=== PATIENT | female | born 2000 | race Caucasian/White ===

== ENCOUNTER 2021-07-09 19:42 | Emergency (ER) | payer OTHER ==
[~2021-07-09 19:42] MED LIST: NAPROXEN500 MG PO
[2021-07-09 21:44] LABS: BASOPHIL 0.6 % (0-2); EOSINOPHIL 1.8 % (0-5); HCT 41.3 % (37.0-47.0); HGB 13.4 g/dl (12.5-16.0); LYMPHOCYTE 31.6 % (15-48); MCH 25.8 pg (25.0-31.0); MCHC 32.4 g/dL (32.0-36.0); MCV 79.6 fL (78.0-100.0); MONOCYTE 7.8 % (0-12); MPV 9.3 fL (6.0-9.5); NRBC 0; PLT 294 K/uL (150-400); RBC 5.19 M/uL (4.20-5.40); RDW 14.5 % (11.5-14.0); WBC 8.6 K/uL (4.0-10.5)
[2021-07-09 22:21] LABS: ALBUMIN 3.7 g/dL (3.4-5.0); BILIRUBIN - TOTAL 0.2 mg/dL (0.2-1.0); BUN/CREAT RATIO (CALC) 17.4 RATIO; CREATININE 0.86 mg/dL (0.51-0.95); POTASSIUM 3.5 mmol/L (3.5-5.1); TOTAL PROTEIN 7.7 g/dL (6.4-8.2)
== END 2021-07-09 22:45 | disposition home or self-care (01) ==
LOC: FER 19:42
PROVIDERS: Physician Assistant
DX: I10 Essential (primary) hypertension (principal)
CPT/HCPCS: 36415; 80053; 85025; 99283